=== PATIENT | female | born 1985 | race Caucasian/White ===

== ENCOUNTER 2023-06-07 21:49 | Emergency (ER) | payer OTHER, SELFPAY ==
--- NOTE | ~2023-06-07 | CT_ITS ---
CT of the Abdomen and Pelvis: Indication: Abdominal pain Technique: 2.5 mm axial scans were obtained through the abdomen and pelvis following intravenous adm inistration of 100 cc of Omnipaque 350. Dose reduction technique was used on this scan by utilizing a utomated exposure control and iterative reconstruction technique. The dose-length product (DLP) was 1 658.37 mGy-cm. Findings: Scans through the lung bases are unremarkable. There is diffuse fatty infiltration of the liver. Spleen measures 16 cm in length. Liver measures 25 cm in length. The gallbladder, adrenals and right kidney are within normal limits. 4 mm nonobstructin g left renal stone noted. Although mild inflammatory changes about the pancreatic tail, suggestive of mild acute pancreatitis. No evidence of aortic aneurysm. No lymphadenopathy. No bowel obstruction or bowel wall thickening. Normal appendix. Small fat-containing umbilical hernia noted. Images through the pelvis were performed. Urinary bladder unremarkable. IUD in place. No adnexal mass seen. No ascites. Impression: Probable mild acute pancreatitis at the pancreatic tail region. Hepatosplenomegaly with underlying diffuse fatty infiltration of the liver. 4 mm nonobstructing left renal stone. Small fat-containing umbilical hernia. IUD in place. Reviewed, dictated and finalized at [facility]. Impression: Probable mild acute pancreatitis at the pancreatic tail region. Hepatosplenomegaly with underlying diffuse fatty infiltration of the liver. 4 mm nonobstructing left renal stone. Small fat-containing umbilical hernia. IUD in place.
[2023-06-07 21:51] VITALS: BP 189/108; PULSE 113; RESP 16; TEMP 36.6; O2SAT 99
[2023-06-07 22:15] VITALS: BP 171/92; PULSE 114; RESP 16; O2SAT 97
--- NOTE | 2023-06-07 22:16 | PC.NURSE ---
pt c/c abd pain that starts on the left side and radiates to the front x1 day. pt speak broken Sinhala. pt is ax0ox4, abc are wnl nad. airway is nad. iv established and labs and urine sent. POC HCG is negative. pt took flanax ([place] Zealander aleve). pt placed on monitor.
[2023-06-07 22:18] LABS: Basophils Absolute Auto 0.1 K/mm3 (0.0-0.1); Basophils Percent Auto 0.6 % (0.2-1.2); Eosinophils Absolute Auto 0.2 K/mm3 (0-0.3); Eosinophils Percent Auto 1.4 % (0-4.4); Immature Granulocyte Percent A 0.7 % (0-0.5); Lymphocytes Absolute Auto 2.92 K/mm3 (0.9-3.2); Lymphocytes Percent Auto 20.1 % (18.3-44.2); Mean Corpuscular HGB Conc 31.4 g/dl (32-36); Mean Corpuscular Hemoglobin 23.5 pg (26-34); Mean Corpuscular Volume 74.6 fl (80-100); Mean Platelet Volume 9.9 fl (7.4-10.4); Monocytes Absolute Auto 0.7 K/mm3 (0.1-0.6); Neutrophils Absolute Auto 10.5 K/mm3 (1.3-6.7); Neutrophils Percent Auto 72.2 % (45.5-73.1); Platelet Count Result 277 k/mm3 (150-375); Red Blood Count 4.69 M/mm3 (4.2-5.4); Red Cell Distribution Width 16.9 % (11.5-14.5); White Blood Count 14.5 K/mm3 (4.5-10.0)
[2023-06-07 22:24] LABS: Appearance Urine Clear (Clear); Bacteria Urine None Seen /hpf; Bilirubin Urine Negative (Negative); Blood Urine Trace (Negative); Color Urine Yellow (Yellow); Glucose Urine UA 3+ mg/dL (Negative); Ketones Urine 1+ mg/dL (Negative); Leukocyte Esterase Ur Negative LEU/UL (Negative); Nitrate Urine Negative (Negative); Non Pathogenic Casts 0-2; Protein Urine 2+ mg/dL (Negative); RBC Urine 0-2 /hpf (0-2); Specific Grav Ur 1.025 (1.001-1.035); Squamous Epithelial Cell Urine Few /hpf (Few); pH Urine 6.5 (5.0-9.0)
--- NOTE | 2023-06-07 22:27 | ED.ABDPAIN ---
HPI - Abdominal Pain General Chief Complaint: Abdominal Pain <JUVENCIO Landaverde Last Filed: 06/08/23 02:14> Stated Complaint: left sided abdominal pain <JUVENCIO Landaverde Last Filed: 06/08/23 02:14> Time Seen by Provider: 06/07/23 21:58 <JUVENCIO Landaverde Last Filed: 06/08/23 02:14> Source: patient <JUVENCIO Landaverde Last Filed: 06/08/23 02:14> Mode of arrival: ambulatory <JUVENCIO Landaverde Filed: 06/08/23 02:14> Limitations: no limitations <JUVENCIO Landaverde Filed: 06/08/23 02:14> History of Present Illness HPI narrative: Patient is a 37-year-old female who presents to the ED with report of left-sided abdominal pain. Patient reports pain began yesterday morning and became worse today, prompting her presentation. Pain is intermittent. No significant aggravating or alleviating factors. She has never had pain like this before. She tried taking ibuprofen and a Thai pain medication without relief. Patient denies any other associated symptoms. Denies nausea, vomiting, diarrhea, constipation, dysuria, hematuria, fevers, history of ovarian cyst or kidney stones. <JUVENCIO Landaverde Last Filed: 06/08/23 02:14> Related Data Home Medications: Home Medications Medication Instructions Recorded Confirmed amlodipine 2.5 mg tablet mg 06/07/23 <JUVENCIO Landaverde Last Filed: 06/08/23 02:14> Allergies/Adverse Reactions: Allergies Allergy/AdvReac Type Severity Reaction Status Date / Time No Known Allergies Allergy Verified 06/07/23 22:21 <JUVENCIO Landaverde Last Filed: 06/08/23 02:14> Review of Systems Review of Systems: CONSTITUTIONAL: Denies fever, chills, or sweats. CARDIOVASCULAR: Denies chest pain. RESPIRATORY: Denies dyspnea. GASTROINTESTINAL: See HPI. GENITOURINARY: Denies dysuria or hematuria. SKIN: Denies rash or itching. MUSCULOSKELETAL: Denies back pain, joint pain, or myalgia. <JUVENCIO Landaverde Last Filed: 06/08/23 02:14> All systems reviewed & are unremarkable except as noted in HPI and below <JUVENCIO Landaverde Last Filed: 06/08/23 02:14> Exam Narrative: GENERAL: Well appearing, obese with BMI of 38.2, non-toxic, in no acute distress. HEAD: Normocephalic, atraumatic. NECK: Supple. No adenopathy, no masses. RESPIRATORY: Airway patent, respirations nonlabored. Clear to auscultation bilaterally, no rales, rhonchi, wheezing. CARDIOVASCULAR: Tachycardic with regular rhythm without murmurs, rubs, or gallops. Peripheral pulses 2+ and equal bilaterally. ABDOMINAL: Soft, tenderness in suprapubic region, left lower abdomen, left mid and upper abdomen, nondistended, no hepatosplenomegaly. Normoactive BS. MUSCULOSKELETAL: Moves all extremities. Strength/ROM intact without gross deformities. SKIN: Warm, dry, normal color. No rashes. NEURO: A&O X3. Speech clear. Cranial nerves II-XII grossly intact. Steady gait. No ataxic movements. PSYCHIATRIC: Appropriate mood and affect. Normal interaction. <JUVENCIO Landaverde Last Filed: 06/08/23 02:14> Course Vital Signs Vital signs: Vital Signs Temperature 36.6 C 06/07/23 21:51 Pulse Rate 113 H 06/07/23 21:51 Respiratory Rate 16 06/07/23 21:51 Blood Pressure 189/108 H 06/07/23 21:51 Pulse Oximetry 99 06/07/23 21:51 Oxygen Delivery Room Air 06/07/23 21:51 Temperature 36.9 C 06/08/23 02:01 Pulse Rate 106 H 06/08/23 04:11 Respiratory Rate 14 06/08/23 04:11 Blood Pressure 149/82 H 06/08/23 04:11 Pulse Oximetry 100 06/08/23 04:11 Oxygen Delivery Room Air 06/07/23 21:51 <JUVENCIO Landaverde Last Filed: 06/08/23 02:14> Vital Signs Temperature 36.6 C 06/07/23 21:51 Pulse Rate 113 H 06/07/23 21:51 Respiratory Rate 16 06/07/23 21:51 Blood Pressure 189/108 H 06/07/23 21:51 Pulse Oximetry 99 06/07/23 21
[2023-06-07 22:31] VITALS: BP 178/105
[2023-06-07] MEDS: ACETAMINOPHEN 500 MG TABLET 1000 MG PO (22:33)
[2023-06-07] MEDS: SODIUM CHLORIDE 0.9% IV 1,000 ML 999 ML IV CONT (22:33)
[2023-06-07 22:43] LABS: Add Urine Microscopic? YES
[2023-06-07 23:01] VITALS: BP 174/89; PULSE 120; RESP 18
[2023-06-07 23:06] LABS: Platelet Estimate Adequate (Adequate)
[2023-06-07 23:07] LABS: Anisocytosis 1+ (NORMAL); Microcytosis 1+ (NORMAL); Schistocytes None Seen (NORMAL)
--- NOTE | 2023-06-07 23:25 | PC.NURSE ---
pt is non-compliant with HTN meds
--- NOTE | 2023-06-07 23:30 | PC.NURSE ---
Addendum entered by María Queen RN 06/07/23 23:31: notified Original Note: SHAWN noitifed of b/p of sbp 176 and a HR of 120. No new orders received
[2023-06-08] VITALS (7 sets, daily range): BP systolic 149–175; BP diastolic 82–114; PULSE 106–114; RESP 14–18; TEMP 36.9–37.1; O2SAT 98–100
[2023-06-08 00:42] LABS: Estimated CRCL calculation 152 ml/min; Estimated Glomerular Filt Rate > 60
--- NOTE | 2023-06-08 01:22 | PC.NURSE ---
SHAWN Mckeon notified of pain and HTN
[2023-06-08 01:27] LABS: Albumin Level 3.6 g/dL (3.5-5.1); Anion Gap 10 mmol/L (8-16); Carbon Dioxide 19 mmol/L (22-30); Chloride 99 mmol/L (98-107); Sodium 128 mmol/L (137-145)
--- NOTE | 2023-06-08 01:29 | ECG_ITS ---
Measurements Intervals [place] Rate: 118 P: 38 IN: 144 QRS: -7 QRSD: 87 T: 32 QT: 326 QTc: 457 Interpretive Statements SINUS TACHYCARDIA POOR R-WAVE PROGRESSION NO PREVIOUS ECG AVAILABLE FOR COMPARISON Electronically Signed On 06-08-2023 10:17:10 CDT by Ruth Lunsford M.D.
[2023-06-08] MEDS: HYDROmorphone HCL INJ (*CRX) 1 MG/ML SYR IV PUSH (01:43)
[2023-06-08] MEDS: SODIUM CHLORIDE 0.9% IV 1,000 ML 999 ML IV CONT ×2 (01:43→02:20)
[2023-06-08 02:10] LABS: Alanine Aminotransferase 18 U/L (6-35); Alkaline Phosphatase 123 U/L (38-126); Aspartate Amino Transferase 19 U/L (14-36); Bilirubin,Total 0.7 mg/dL (0.2-1.3); Blood Urea Nitrogen 8 mg/dL (7-17); Calcium 8.5 mg/dL (8.4-10.2); Estimated CRCL calculation 152 ml/min; Estimated Glomerular Filt Rate > 60; Glucose 315 mg/dL (65-110); Lipase 170 U/L (23-300); Potassium 3.8 mmol/L (3.4-5.0)
--- NOTE | 2023-06-08 03:07 | PC.NURSE ---
pt denies pain. pt is waiting CT results.
== END 2023-06-08 04:51 | disposition home or self-care (01) ==
PROVIDERS: Physician Assistant; Emergency Provider Emergency Medicine
DX: K85.90 Acute pancreatitis without necrosis or infection, unspecified (principal); R10.9 Unspecified abdominal pain; K29.70 Gastritis, unspecified, without bleeding; R03.0 Elevated blood-pressure reading, without diagnosis of hypertension
CPT/HCPCS: 36415; 74177; 80053; 81001; 81025; 83690; 85025; 87086; 87088; 87147; 93005; 96361; 96374; 99284; A9270; J1170; J7030; Q9967

== ENCOUNTER 2023-12-23 14:39 | Emergency (ER) | payer OTHER, SELFPAY ==
--- NOTE | ~2023-12-23 | XR_ITS ---
EXAM: XR foot LT min 3V DATE: 12/23/2023 18:11 HISTORY: left heel pain, bruising along arch and medial, no injury . COMPARISON: None available. FINDINGS: Normal mineralization. No fracture or dislocation. No lytic or blastic lesion. Plantar and Achilles enthesopathy. No erosion or periosteal change. Plantar soft tissue swelling. IMPRESSION: No acute osseous finding in the left foot. No radiopaque foreign body. Reviewed, dictated and finalized at location [facility] IMPRESSION: No acute osseous finding in the left foot. No radiopaque foreign phuong dy.
[2023-12-23 15:20] VITALS: BP 184/102; PULSE 109; RESP 18; TEMP 36; O2SAT 100
--- NOTE | 2023-12-23 18:56 | ED.LOWEXIN ---
HPI - Extremity Injury (Lower) General Chief Complaint: Extremity Injury, Lower Stated Complaint: heel pain Time Seen by Provider: 12/23/23 17:57 History of Present Illness HPI Narrative: 38-year-old female reports for evaluation for left heel pain x1 week. Patient states a week ago, she tripped over a chair and misstepped. She did not fall to the ground. States the next day she began having pain in her left heel and over the left 5th metatarsal. She denies twisting her ankle or other injuries acquired. States her pain is worse in the mornings and after walking on it for long period of time. She has a PCP and rated [facility]. Denies concern for . Related Data Home Medications Medication Instructions Recorded Confirmed amlodipine 2.5 mg tablet mg 06/07/23 Allergies Allergy/AdvReac Type Severity Reaction Status Date / Time No Known Allergies Allergy Verified 12/23/23 15:23 Review of Systems Review of Systems: CONSTITUTIONAL: Denies fever, chills, or sweats. EYES: Denies visual changes, redness, or discharge. ENT: Denies rhinorrhea, congestion, sore throat, or otalgia. CARDIOVASCULAR: Denies chest pain, palpitations, or edema. RESPIRATORY: Denies cough or dyspnea. GASTROINTESTINAL: Denies abdominal pain, nausea, vomiting, or diarrhea. GENITOURINARY: Denies dysuria or hematuria. SKIN: Denies rash or itching. MUSCULOSKELETAL: See HPI NEUROLOGIC: Denies headache, numbness, or weakness. PSYCHIATRIC: Denies anxiety or depression. Exam Narrative: GENERAL: Well-appearing, well-nourished, and in no acute distress. HEAD: Normocephalic, atraumatic. NECK: Supple. CHEST: Clear to auscultation. No respiratory distress. HEART: Regular rate and rhythm. No murmur heard. Normal peripheral pulses. EXTREMITIES: LLE: Tenderness to the calcaneus and over the proximal aspect of the 5th metatarsal without overlying skin changes, ecchymosis or edema. No tenderness remainder of foot, ankle, tib-fib rule lower extremity. Full range of motion of hip, knee, ankle and toes. Cap refill less than 2. DP pulse 2 +. Sensation intact. SKIN: Warm, dry, no rash. NEURO: No focal deficits. Alert and oriented x3 Course Vital Signs Vital signs: Vital Signs Temperature 96.8 F L 12/23/23 15:20 Pulse Rate 109 H 12/23/23 15:20 Respiratory Rate 18 12/23/23 15:20 Blood Pressure 184/102 H 12/23/23 15:20 Pulse Oximetry 100 12/23/23 15:20 Oxygen Delivery Room Air 12/23/23 15:20 Temperature 96.8 F L 12/23/23 15:20 Pulse Rate 94 12/23/23 19:03 Respiratory Rate 18 12/23/23 19:03 Blood Pressure 167/91 H 12/23/23 19:03 Pulse Oximetry 99 12/23/23 19:03 Oxygen Delivery Room Air 12/23/23 15:20 MDM - Extremity Injury (Lower) MDM Narrative Medical decision making narrative: 38-year-old female reports for evaluation for left heel pain x1 week. See HPI for further history. Triage vital significant for elevated blood pressure and mild tachycardia, otherwise unremarkable. Exam is significant for the above. X-ray of the foot is unremarkable. Imaging and exam discussed with the patient. Suspect foot sprain versus plantar fasciitis. Ibuprofen provided. Patient requesting postop shoe and Lionel wrap which was also provided. Ibuprofen sent to pharmacy. Encouraged close follow-up with PCP, supportive measures discussed. ED return precautions discussed. Patient agreeable to plan verbalized understanding. Vitals improved. Discharged in stable condition. Discharge Plan Discharge Clinical Impression: Foot sprain Qualifiers: Encounter type: initial encounter Laterality: left Qualified Code(s): S93.602A - Unspecified sprain of left foot, initial encounter Patient Disposition: Home, Self-Care Condition: Stable Instructions: Antibiotic Form, Plantar Fasciitis (ED), Foot Sprain (ED), Plantar Fasciitis Exercises (ED) Patient Language: Cambodian Prescriptions: New ibuprofen 600 mg tablet 600
[2023-12-23] MEDS: IBUPROFEN 400 MG TABLET 800 MG PO (19:00)
[2023-12-23 19:03] VITALS: BP 167/91; PULSE 94; RESP 18; O2SAT 99
== END 2023-12-23 19:06 | disposition home or self-care (01) ==
PROVIDERS: Emergency Provider Physician Assistant
DX: S93.602A Unspecified sprain of left foot, initial encounter (principal); W22.03XA Walked into furniture, initial encounter
CPT/HCPCS: 73630; 99283; A9270

== ENCOUNTER 2024-04-24 13:13 | Inpatient (IN) | payer OTHER, SELFPAY ==
--- NOTE | ~2024-04-24 | CT_ITS ---
CT abdomen pelvis w con Ordering provider: Elie Lopez MD History: . epigastric pain . Comparison: June 08 2023 Technique: CT abdomen with IV and without oral contrast. Radiation reduction technique utilized. DLP is 1443.15 mGy. Findings: VISUALIZED LOWER CHEST: Dependent atelectatic changes. UPPER ABDOMINAL ORGANS: Liver: Fat infiltration. Measures 29 cm. Hepatomegaly. Gallbladder: Normal. Spleen: Splenomegaly. Measures 16 cm. Stomach/duodenum: Normal. Pancreas: Fat stranding around the body and tail of the pancreas is noted suggestive of pancreatitis. Adrenals: Normal. Kidneys: Lobulated outline of both kidneys suggestive of lobation. 4 mm stone in the left kidne y lower pole. Small cyst in the right kidney lower pole. Urinary bladder: Normal. Uterus: Normal. IUD is seen in the uterus. VISUALIZED BOWEL AND MESENTERY: Normal appendix. The bowel is otherwise normal. No free air or free f luid. No mesenteric lymphadenopathy. RETROPERITONEUM: Normal abdominal aorta. No retroperitoneal lymphadenopathy. Small para-aortic lymph nodes. MUSCULOSKELETAL: Fat containing umbilical hernia. Otherwise, The superficial soft tissues are normal. Age appropriate degenerative changes of the spine. Bilateral sacroiliacs. IMPRESSION: Pancreatitis of the body and tail of the pancreas Hepatomegaly with fat infiltration. Splenomegaly. Stone in the left kidney. Lobulated outline of both kidneys. Small cyst in the right kidney. Small fat-containing umbilical hernia. Reviewed, dictated and finalized at location A.
[2024-04-24 13:32] VITALS: BP 163/86; PULSE 105; RESP 20; TEMP 36.5; O2SAT 98
[2024-04-24 14:50] LABS: Basophils Absolute Auto 0.1 K/mm3 (0.0-0.1); Basophils Percent Auto 0.6 % (0.2-1.2); Eosinophils Absolute Auto 0.2 K/mm3 (0-0.3); Eosinophils Percent Auto 1.5 % (0-4.4); Hematocrit 36.4 % (37.0-47.0); Hemoglobin 12.9 g/dL (12.0-15.0); Immature Granulocyte Absolute 0.09 K/mm3 (0.00-0.031); Immature Granulocyte Percent A 0.7 % (0-0.5); Lymphocytes Absolute Auto 1.43 K/mm3 (0.9-3.2); Mean Corpuscular HGB Conc 35.4 g/dl (32-36); Mean Corpuscular Hemoglobin 27.6 pg (26-34); Mean Corpuscular Volume 77.9 fl (80-100); Mean Platelet Volume 10.5 fl (7.4-10.4); Monocytes Absolute Auto 0.7 K/mm3 (0.1-0.6); Monocytes Percent Auto 5.3 % (2.6-8.5); Neutrophils Absolute Auto 10.5 K/mm3 (1.3-6.7); Neutrophils Percent Auto 80.9 % (45.5-73.1); Platelet Count Result 338 k/mm3 (150-375); Red Blood Count 4.67 M/mm3 (4.2-5.4); Red Cell Distribution Width 15.6 % (11.5-14.5)
[2024-04-24] MEDS: SODIUM CHLORIDE 0.9% IV 1,000 ML 999 ML IV CONT (15:00)
[2024-04-24] MEDS: MORPHINE SULFATE (*CRX) 4 MG/ML INJ IV PUSH ×3 (15:00→18:42)
[2024-04-24] MEDS: ONDANSETRON INJ 4 MG/2 ML VIAL IV PUSH ×3 (15:00→22:39)
[2024-04-24 15:09] LABS: Appearance Urine Cloudy (Clear); Bacteria Urine 4+ /hpf; Bilirubin Urine Negative (Negative); Blood Urine 1+ (Negative); Color Urine Yellow (Yellow); Glucose Urine UA 3+ mg/dL (Negative); Ketones Urine 2+ mg/dL (Negative); Leukocyte Esterase Ur Negative LEU/UL (Negative); Need Manual Microscopic Reviewed; Nitrate Urine Negative (Negative); Non Pathogenic Casts 0-2; Protein Urine 2+ mg/dL (Negative); RBC Urine 0-2 /hpf (0-2); Squamous Epithelial Cell Urine Moderate /hpf (Few); Urobilinogen Urine 0.2 mg/dL (<2.0); WBC Urine 21-50 /hpf (0-3); pH Urine 5.5 (5.0-9.0)
[2024-04-24 15:10] LABS: Add Urine Microscopic? YES; Specific Grav Ur 1.047 (1.001-1.035)
[2024-04-24 15:21] LABS: Alanine Aminotransferase 14 U/L (6-35); Albumin Level 4.3 g/dL (3.5-5.1); Alkaline Phosphatase 101 U/L (38-126); Aspartate Amino Transferase 21 U/L (14-36); Blood Urea Nitrogen 10 mg/dL (7-17); Calcium 9.3 mg/dL (8.4-10.2); Chloride 101 mmol/L (98-107); Estimated CRCL calculation 129 ml/min; Estimated Glomerular Filt Rate > 60; Glucose 283 mg/dL (65-110); Lipase 757 U/L (23-300); Potassium 4.1 mmol/L (3.4-5.0); Sodium 134 mmol/L (137-145)
--- NOTE | 2024-04-24 16:38 | ED.ABDPAIN ---
HPI - Abdominal Pain General Chief Complaint: Abdominal Pain Stated Complaint: LUQ pain Time Seen by Provider: 04/24/24 14:22 History of Present Illness HPI narrative: Patient is a 38-year-old female who presents ER with epigastric pain. Ongoing for 2 days. Aching in fullness. Radiates towards back. No nausea or vomiting. Worse with eating and drinking. Feels similar to previous pancreatitis. Denies any alcohol use. Related Data Home Medications Medication Instructions Recorded Confirmed amlodipine 2.5 mg tablet mg 06/07/23 Allergies Allergy/AdvReac Type Severity Reaction Status Date / Time No Known Allergies Allergy Verified 04/24/24 13:13 Review of Systems Review of Systems: All systems reviewed & are unremarkable except as noted in HPI and below Constitutional: Constitutional: Reports no additional constitutional complaints ENT: Reports system reviewed and no additional complaints, except as documented Cardiovascular: Cardiovascular: Reports no additional cardiovascular complaints Respiratory: Respiratory: Reports no additional respiratory complaints Gastrointestinal: Gastrointestinal: Reports abdominal pain, Reports bloating, Denies diarrhea, Denies nausea and Denies vomiting Genitourinary: Genitourinary: Reports no additional female genitourinary complaints [facility] Past Medical History Medical History (Updated 04/24/24 @ 18:22 by Joelle Davison APRN) Diabetes Hypertension Pancreatitis Surgical History Surgical History No history of previous surgery Exam Narrative: GENERAL: Well-appearing, obese, and in no acute distress. HEAD: Normocephalic, atraumatic. ENT: Mucous membranes moist. NECK: Supple. CHEST: Clear to auscultation. No respiratory distress. HEART: Regular rate and rhythm. Normal peripheral pulses. ABDOMEN: Soft, tender palpation to the epigastrium and bilateral upper quadrants with guarding, nondistended. EXTREMITIES: Normal range of motion. No edema. SKIN: Warm, dry, no rash. NEURO: Alert and oriented x3. PSYCH: Normal mood and affect. Course Course Emergency Course: Admit to the hospitalist service for pain control. Patient NPO with IV fluids going. Vital Signs Vital signs: Vital Signs Temperature 97.7 F 04/24/24 13:32 Pulse Rate 105 H 04/24/24 13:32 Respiratory Rate 20 04/24/24 13:32 Blood Pressure 163/86 H 04/24/24 13:32 Pulse Oximetry 98 04/24/24 13:32 Oxygen Delivery Room Air 04/24/24 13:32 Temperature 97.7 F 04/24/24 13:32 Pulse Rate 70 04/24/24 18:15 Respiratory Rate 16 04/24/24 18:15 Blood Pressure 147/82 H 04/24/24 18:15 Pulse Oximetry 98 04/24/24 18:15 Oxygen Delivery Room Air 04/24/24 13:32 MDM - Abdominal Pain Lab Data 04/24/24 14:39 04/24/24 14:39 Labs: Lab Results 04/24/24 Range/Units 14:39 WBC 13.0 H (4.5-10.0) K/mm3 RBC 4.67 (4.2-5.4) M/mm3 Hgb 12.9 (12.0-15.0) g/dL Hct 36.4 L (37.0-47.0) % MCV 77.9 L (80-100) fl MCH 27.6 (26-34) pg MCHC 35.4 (32-36) g/dl RDW 15.6 H (11.5-14.5) % Plt Count 338 (150-375) k/mm3 MPV 10.5 H (7.4-10.4) fl Immature Gran % (Auto) 0.7 H (0-0.5) % Neut % (Auto) 80.9 H (45.5-73.1) % Lymph % (Auto) 11.0 L (18.3-44.2) % [place] % (Auto) 5.3 (2.6-8.5) % Eos % (Auto) 1.5 (0-4.4) % Baso % (Auto) 0.6 (0.2-1.2) % Lymph # (Auto) 1.43 (0.9-3.2) K/mm3 [place] # (Auto) 0.7 H (0.1-0.6) K/mm3 Eos # (Auto) 0.2 (0-0.3) K/mm3 Baso # (Auto) 0.1 (0.0-0.1) K/mm3 Abs Immat Gran (auto) 0.09 H (0.00-0.031) K/mm3 Absolute Neuts (auto) 10.5 H (1.3-6.7) K/mm3 Absolute Nucleated RBC 0.000 (0.0-0.012) K/mm3 Nucleated RBC % 0.0 (0.0-0.2) % Sodium 134 L (137-145) mmol/L Potassium 4.1 (3.4-5.0) mmol/L Chloride 101 (98-107) mmol/L Carbon Dioxide TNP Anion Gap Not Reportable BUN 10 (7-17) mg/dL Creatini
--- NOTE | 2024-04-24 18:09 | PM.IMHP ---
H&P: [facility] History of Present Illness Date/Time: 04/24/24 18:09 Chief Complaint: Abdominal Pain Narrative: 38 y/o F presents here with abdominal pain with PMH of pancreatitis, DM, and HTN. The patient presents here from home for further evaluation of epigastric pain. The pain began approximately 2 days ago. She describes the pain as an aching/fullness, radiating into her mid back, intermittent, aggravated by eating, and alleviated by water. Also experiencing nausea and vomiting. No associated fever, diarrhea, urinary symptoms, or changes in stool color. Has been taking ibuprofen for pain without relief. Denies ETOH use. Reports compliance with DM medications and HTN medications at this time. Initial VS at presentation: 97.7F, HR 105, RR 20, 163/86, and 98% on RA. ED workup showed: WBC 13, no anemia, sodium 134, creatinine 0.6 and GFR >60, glucose 283, and lipase 757. UA equivocal for UTI. CT abd/pelvis pancreatitis, hepatomegaly, splenomegaly, stone in the left ureter, small cyst in the right kidney, and small fat containing umbilical hernia. Review of Systems Review of Systems: All systems reviewed & are unremarkable except as noted in HPI and below [facility] Past Medical History Medical History (Updated 04/25/24 @ 00:00 by Joelle Davison APRN) Diabetes Hypertension Pancreatitis Surgical History Surgical History No history of previous surgery Social History Social History Smoking status: Never smoker Alcohol intake: never Substance use: never Substance use type: does not use Do You Feel Safe in your Home?: Yes Lack of Transportation: YES Lack of Food: Never True Current Housing: I Have Housing Concerned About Future Housing: No Difficulty Paying Gas/Electric Bills: No Difficulty Paying for Meds: No Currently Unemployed: No Education: High School Diploma/GED Difficulty w/ Childcare or Family Care: No Spiritual care concerns: No Meds Home Medications and Allergies Home Medications Medication Instructions Recorded Confirmed Type amlodipine 2.5 mg tablet 5 mg PO DAILY 06/07/23 04/24/24 History hydrocodone 5 mg-acetaminophen 325 1 tablet PO Q6H PRN pain 3 days 06/08/23 04/24/24 Rx mg tablet #12 tabs pantoprazole 40 mg tablet,delayed 40 mg PO HS 4 weeks #28 tabs 06/08/23 04/24/24 Rx release (Protonix) ibuprofen 600 mg tablet 600 mg PO Q6H PRN pain #14 tabs 12/23/23 04/24/24 Rx dulaglutide 0.75 mg/0.5 mL 0.75 mg subcut WEEKLY 04/24/24 04/24/24 History subcutaneous pen injector (Trulicity) ergocalciferol (vitamin D2) 1,250 50,000 unit PO WEEKLY 04/24/24 04/24/24 History mcg (50,000 unit) capsule fenofibrate 160 mg tablet 160 mg PO DAILY 04/24/24 04/24/24 History losartan 100 mg tablet 100 mg PO DAILY 04/24/24 04/24/24 History metformin 1,000 mg tablet 1,000 mg PO BID 04/24/24 04/24/24 History Allergies Allergy/AdvReac Type Severity Reaction Status Date / Time No Known Allergies Allergy Verified 04/24/24 13:13 Vital Signs Vital Signs - 24 hr 04/24/24 13:32 Temperature 97.7 F Pulse Rate 105 H Respiratory Rate 20 Blood Pressure 163/86 H Pulse Oximetry 98 Oxygen Delivery Room Air Exam Const: General: comfortable and no acute distress Other: , female, ill-appearing HENMT: Face/Nose/Sinus: Normal nares present Mouth: Yes moist mucous membranes Eyes: General: appearance normal, both eyes and all related structures Sclera: sclerae normal Pupils: Equal, round and reactive pupils present EOM: EOMs intact bilaterally Resp: Effort & Inspection: normal respiratory effort Auscultation: clear to auscultation bilaterally Cardio: Rate: tachycardic (Rate 100) Rhythm: regular rhythm Other: S1-S2 present without murmur, rub, ectopy GI: Other: Abdomen soft, nondistended. Significant tenderness to the left upp
[2024-04-24 18:15] VITALS: BP 147/82; PULSE 70; RESP 16; O2SAT 98
--- NOTE | 2024-04-24 18:33 | ADMGEN ---
This patient, Nalini Don, was admitted to 3 Medical Room 340-01. Patient/family oriented to hospital policies and general routines including ID bracelet, bed and alarms, visiting hours, pain management, procedures, bathroom and other care routines, personal items, smoking policy, room service/diet, and visiting hours. Information on how to activate the Rapid Response Team has been discussed. Patient/Family are encouraged to report perceived risks to care and to ask questions if they do not understand what they are told or what they should do.
[2024-04-24] MEDS: SODIUM CHLORIDE 0.9% IV 1,000 ML 175 ML IV CONT (18:41)
[2024-04-24] MEDS: HYDROmorphone HCL INJ (*CRX) 1 MG/ML SYR 0.5 MG IV PUSH ×2 (20:00→22:41)
[2024-04-24 20:27] VITALS: BP 133/77; PULSE 105; RESP 18; TEMP 36.4; O2SAT 94
[2024-04-24 20:34] LABS: Glucose Point of Care 295 mg/dl (65-105)
[2024-04-24 21:35] VITALS: O2SAT 94
[2024-04-25] MEDS: SODIUM CHLORIDE 0.9% IV 1,000 ML 100 ML IV CONT ×3 (00:20→17:24)
[2024-04-25] MEDS: HYDROcodone/acetaminophen (*CRX) 5-325 MG TABLET 1 TAB PO (00:20)
[2024-04-25] MEDS: KETOROLAC 30 MG/ML VIAL (*BKC) IV PUSH (00:21)
[2024-04-25 04:24] VITALS: BP 132/71; PULSE 108; RESP 16; TEMP 36.6; O2SAT 97
[2024-04-25] MEDS: HYDROmorphone HCL INJ (*CRX) 1 MG/ML SYR 0.75 MG IV PUSH ×4 (04:38→20:06)
[2024-04-25] MEDS: ONDANSETRON INJ 4 MG/2 ML VIAL IV PUSH ×3 (04:42→20:06)
[2024-04-25 05:50] LABS: Basophils Percent Auto 0.4 % (0.2-1.2); Eosinophils Percent Auto 0.1 % (0-4.4); Hematocrit 35.2 % (37.0-47.0); Hemoglobin 11.2 g/dL (12.0-15.0); Immature Granulocyte Absolute 0.08 K/mm3 (0.00-0.031); Immature Granulocyte Percent A 0.8 % (0-0.5); Lymphocytes Percent Auto 7.8 % (18.3-44.2); Mean Corpuscular HGB Conc 31.8 g/dl (32-36); Mean Corpuscular Hemoglobin 25.2 pg (26-34); Mean Corpuscular Volume 79.1 fl (80-100); Mean Platelet Volume 10.4 fl (7.4-10.4); Monocytes Absolute Auto 0.6 K/mm3 (0.1-0.6); Neutrophils Absolute Auto 8.8 K/mm3 (1.3-6.7); Neutrophils Percent Auto 84.9 % (45.5-73.1); Platelet Count Result 290 k/mm3 (150-375); Red Blood Count 4.45 M/mm3 (4.2-5.4); Red Cell Distribution Width 15.6 % (11.5-14.5); White Blood Count 10.3 K/mm3 (4.5-10.0)
[2024-04-25 06:26] LABS: Alanine Aminotransferase 10 U/L (6-35); Albumin Level 3.5 g/dL (3.5-5.1); Alkaline Phosphatase 75 U/L (38-126); Anion Gap 15 mmol/L (4-12); Aspartate Amino Transferase 16 U/L (14-36); Bilirubin,Total 0.6 mg/dL (0.2-1.3); Blood Urea Nitrogen 8 mg/dL (7-17); Calcium 7.8 mg/dL (8.4-10.2); Carbon Dioxide 14 mmol/L (22-30); Chloride 108 mmol/L (98-107); Cholesterol 294 mg/dL (0-200); Estimated CRCL calculation 112 ml/min; Estimated Glomerular Filt Rate > 60; Glucose 359 mg/dL (65-110); Potassium 4.7 mmol/L (3.4-5.0); Sodium 137 mmol/L (137-145)
[2024-04-25 06:55] LABS: Triglycerides 1898 mg/dL (<150)
[2024-04-25 06:56] LABS: Lipase 5776 U/L (23-300)
[2024-04-25 07:21] LABS: LDL Cholesterol Direct < 60 mg/dL
[2024-04-25 08:07] LABS: Glucose Point of Care 319 mg/dl (65-105)
[2024-04-25] MEDS: amLODIPine BESYLATE 5 MG TABLET PO (08:13)
[2024-04-25] MEDS: LOSARTAN POTASSIUM 100 MG TABLET PO (08:13)
[2024-04-25] MEDS: FENOFIBRATE 160 MG TABLET PO (08:13)
[2024-04-25] MEDS: INSULIN ASPART (*BKC) 100 UNITS/ML SUB-Q ×3 (08:14→17:27)
[2024-04-25 12:34] LABS: Glucose Point of Care 277 mg/dl (65-105)
[2024-04-25] MEDS: ACETAMINOPHEN 325 MG TABLET 650 MG PO (12:58)
[2024-04-25 14:00] VITALS: BP 157/80; PULSE 118; RESP 16; TEMP 36.9; O2SAT 92
--- NOTE | 2024-04-25 14:33 | PM.IMPN ---
Progress Note: A&P Assessment and Plan (1) Pancreatitis: Qualifiers: Acute pancreatitis complication: no infection or necrosis Chronicity: acute Pancreatitis type: unspecified pancreatitis type Qualified Code(s): K85.90 - Acute pancreatitis without necrosis or infection, unspecified Code(s): K85.90 - Acute pancreatitis without necrosis or infection, unspecified Status: Acute Assessment and Plan: - IV fluids: 1L bolus -> 175 mL/hr - trend lipase:757, 5776 - lipid panel with elevated triglycerides of 1898 and A1C 11.0 - pain control with Tylenol, [place], Morphine - zofran prn for nausea - CT abd/pelvis: Pancreatitis of the body and tail of the pancreas, hepatomegaly with fat infiltration, splenomegaly, stone in the left kidney. Lobulated outline of both kidneys. Small cyst in the right kidney, small fat-containing umbilical hernia. - ETOH: none - NPO until pain is more controlled, then will advance (2) Diabetes: Code(s): E11.9 - Type 2 diabetes mellitus without complications Status: Acute Assessment and Plan: - hypoglycemia protocol - POC blood glucose ACHS - home medication: Metformin and Trulicity held - correct regimen ordered - low dose TIDWM and HS - A1C 11% on 04/25/2024 (3) Hypertension: Code(s): I10 - Essential (primary) hypertension Status: Acute Assessment and Plan: - continue home medications: Amlodipine 5 mg daily and losartan 100 mg daily - monitor Plan Diet: NPO with ice chips GI Prophylaxis: not currently indicated DVT Prophylaxis: SCDs Lines: peripheral Code Status: full code Subjective Date/time seen: 04/25/24 14:33 Interval history: Patient continues to have acute abdominal pain worse on the left than the right. She did states that she did have nausea and emesis when given IV pain medication. She denies diarrhea, fever, chest pain shortness a breath. Exam Narrative: GENERAL: Comfortable, no acute distress, central obesity HENMT: dry mucous membranes EYES: EOM intact b/l RESPIRATORY: clear to auscultation, no increased respiratory effort CARDIO: Regular rate and rhythm GI: soft, left upper quadrant tenderness, bowel sounds present SKIN/EXTREMITIES: no rashes, no edema, no redness or tenderness NEURO: PROM intact, answers questions appropriately, A&O x4 Objective Data Vital Signs Vital Signs: Vital Signs - 24 hr 04/24/24 18:15 04/24/24 20:27 04/24/24 20:00 Temperature 97.6 F Pulse Rate 70 105 H Respiratory Rate 16 18 Blood Pressure 147/82 H 133/77 Pulse Oximetry 98 94 Oxygen Delivery Room Air 04/24/24 21:35 04/25/24 04:24 04/25/24 08:00 Temperature 97.8 F Pulse Rate 108 H Respiratory Rate 16 Blood Pressure 132/71 Pulse Oximetry 94 97 Oxygen Delivery Room Air Room Air Intake/Output Intake/Output: Intake & Output 04/22/24 04/23/24 04/24/24 04/25/24 23:59 23:59 23:59 23:59 Intake Total 1000 1796.7 Balance 1000 1796.7 Meds/Results Medications: Active Medications Generic Name Dose Route Start Last Admin Trade Name Freq PRN Reason Stop Dose Admin Acetaminophen 650 mg 04/24/24 18:50 04/25/24 12:58 Acetaminophen 325 Mg Tablet PO 650 mg Q4H PRN Administration Mild Pain (1-3) or Fever Hydrocodone Bitart/Acetaminophen 1 tab 04/24/24 18:50 04/25/24 00:20 Hydrocodone/Acetaminophen (*Crx) 5-325 Mg Tablet PO 1 tab Q4H PRN Administration Pain Rated 4-6 Amlodipine Besylate 5 mg 04/25/24 09:00 04/25/24 08:13 Amlodipine Besylate 5 Mg Tablet PO 5 mg DAILY GUERO Administration Dextrose 12.5 gm 04/24/24 18:53 Dextrose 50% 25 Gm/50 Ml Syringe IV PUSH PRN PRN Hypoglycemia Protocol Ergocalciferol 50,000 units 04/27/24 09:00 Ergocalciferol 50,000 Units Capsule PO WEEKLY GUERO Fenofibrate 160 mg 04/25/24 09:00 04/25/24 08:13 Fenofibrate 160 Mg Tablet PO 160 mg DAILY GUERO Admin
[2024-04-25 17:26] LABS: Glucose Point of Care 280 mg/dl (65-105)
[2024-04-25 19:56] VITALS: BP 125/73; PULSE 115; RESP 18; TEMP 37.3; O2SAT 94
[2024-04-25] MEDS: PANTOPRAZOLE 40 MG TABLET PO (20:06)
[2024-04-25 22:29] LABS: Glucose Point of Care 266 mg/dl (65-105)
[2024-04-26] MEDS: ONDANSETRON INJ 4 MG/2 ML VIAL IV PUSH (01:35)
[2024-04-26] MEDS: HYDROmorphone HCL INJ (*CRX) 1 MG/ML SYR 0.75 MG IV PUSH (01:35)
[2024-04-26] MEDS: SODIUM CHLORIDE 0.9% IV 1,000 ML 100 ML IV CONT ×2 (03:10→12:57)
[2024-04-26 04:44] VITALS: BP 145/71; PULSE 108; RESP 18; TEMP 36.1; O2SAT 94
[2024-04-26 06:32] LABS: Hematocrit 34.1 % (37.0-47.0); Hemoglobin 10.4 g/dL (12.0-15.0); Mean Corpuscular HGB Conc 30.5 g/dl (32-36); Mean Corpuscular Hemoglobin 24.8 pg (26-34); Mean Corpuscular Volume 81.2 fl (80-100); Mean Platelet Volume 10.2 fl (7.4-10.4); Platelet Count Result 272 k/mm3 (150-375); Red Cell Distribution Width 16.6 % (11.5-14.5); White Blood Count 9.5 K/mm3 (4.5-10.0)
[2024-04-26 06:44] LABS: Anion Gap 9 mmol/L (4-12); Blood Urea Nitrogen 13 mg/dL (7-17); Calcium 7.7 mg/dL (8.4-10.2); Carbon Dioxide 22 mmol/L (22-30); Chloride 109 mmol/L (98-107); Estimated CRCL calculation 112 ml/min; Estimated Glomerular Filt Rate > 60; Glucose 264 mg/dL (65-110); Lipase 634 U/L (23-300); Potassium 4.3 mmol/L (3.4-5.0); Sodium 140 mmol/L (137-145)
[2024-04-26 08:21] LABS: Glucose Point of Care 266 mg/dl (65-105)
[2024-04-26] MEDS: HYDROcodone/acetaminophen (*CRX) 5-325 MG TABLET 1 TAB PO ×3 (09:10→21:53)
[2024-04-26] MEDS: LOSARTAN POTASSIUM 100 MG TABLET PO (09:11)
[2024-04-26] MEDS: FENOFIBRATE 160 MG TABLET PO (09:11)
[2024-04-26] MEDS: amLODIPine BESYLATE 5 MG TABLET PO (09:11)
[2024-04-26] MEDS: INSULIN ASPART (*BKC) 100 UNITS/ML SUB-Q ×3 (09:13→17:27)
[2024-04-26 12:08] LABS: Glucose Point of Care 228 mg/dl (65-105)
--- NOTE | 2024-04-26 13:59 | PM.IMPN ---
Progress Note: A&P Assessment and Plan (1) Pancreatitis: Qualifiers: Chronicity: acute Pancreatitis type: unspecified pancreatitis type Acute pancreatitis complication: no infection or necrosis Qualified Code(s): K85.90 - Acute pancreatitis without necrosis or infection, unspecified Code(s): K85.90 - Acute pancreatitis without necrosis or infection, unspecified Status: Acute Assessment and Plan: - IV fluids @ 100 mL/hr - trend lipase:757, 5776, 634 - lipid panel with elevated triglycerides of 1898 and A1C 11.0 - pain control with Tylenol, [place], Morphine - zofran prn for nausea - CT abd/pelvis: Pancreatitis of the body and tail of the pancreas, hepatomegaly with fat infiltration, splenomegaly, stone in the left kidney. Lobulated outline of both kidneys. Small cyst in the right kidney, small fat-containing umbilical hernia. - ETOH: none - Diet advanced to clear liquids. (2) Diabetes: Code(s): E11.9 - Type 2 diabetes mellitus without complications Status: Acute Assessment and Plan: - hypoglycemia protocol - POC blood glucose ACHS - home medication: Metformin and Trulicity held - correct regimen ordered - low dose TIDWM and HS - A1C 11% on 04/25/2024 (3) Hypertension: Code(s): I10 - Essential (primary) hypertension Status: Acute Assessment and Plan: - continue home medications: Amlodipine 5 mg daily and losartan 100 mg daily - monitor Plan Diet: clear liquids GI Prophylaxis: not currently indicated DVT Prophylaxis: SCDs Lines: peripheral Code Status: full code Subjective Date/time seen: 04/26/24 13:59 Interval history: Patient's abdominal pain is improving. She is beginning to have an appetite again. Will start her on a clear liquid diet. She denies any nausea vomiting. Plan to advance diet. Exam Narrative: GENERAL: Comfortable, no acute distress, central obesity HENMT: dry mucous membranes EYES: EOM intact b/l RESPIRATORY: clear to auscultation, no increased respiratory effort CARDIO: Regular rate and rhythm GI: soft, left upper quadrant tenderness (improved) , bowel sounds present SKIN/EXTREMITIES: no rashes, no edema, no redness or tenderness NEURO: PROM intact, answers questions appropriately, A&O x4 Objective Data Vital Signs Vital Signs: Vital Signs - 24 hr 04/25/24 14:00 04/25/24 19:56 04/25/24 20:00 Temperature 98.5 F 99.1 F Pulse Rate 118 H 115 H Respiratory Rate 16 18 Blood Pressure 157/80 H 125/73 Pulse Oximetry 92 94 Oxygen Delivery Room Air 04/26/24 04:44 04/26/24 08:00 Temperature 97 F L Pulse Rate 108 H Respiratory Rate 18 Blood Pressure 145/71 H Pulse Oximetry 94 Oxygen Delivery Room Air Intake/Output Intake/Output: Intake & Output 04/23/24 04/24/24 04/25/24 04/26/24 23:59 23:59 23:59 23:59 Intake Total 1000 2706.7 1950.0 Balance 1000 2706.7 1950.0 Meds/Results Medications: Active Medications Generic Name Dose Route Start Last Admin Trade Name Freq PRN Reason Stop Dose Admin Acetaminophen 650 mg 04/24/24 18:50 04/25/24 12:58 Acetaminophen 325 Mg Tablet PO 650 mg Q4H PRN Administration Mild Pain (1-3) or Fever Hydrocodone Bitart/Acetaminophen 1 tab 04/24/24 18:50 04/26/24 09:10 Hydrocodone/Acetaminophen (*Crx) 5-325 Mg Tablet PO 1 tab Q4H PRN Administration Pain Rated 4-6 Amlodipine Besylate 5 mg 04/25/24 09:00 04/26/24 09:11 Amlodipine Besylate 5 Mg Tablet PO 5 mg DAILY GUERO Administration Dextrose 12.5 gm 04/24/24 18:53 Dextrose 50% 25 Gm/50 Ml Syringe IV PUSH PRN PRN Hypoglycemia Protocol Ergocalciferol 50,000 units 04/27/24 09:00 Ergocalciferol 50,000 Units Capsule PO WEEKLY GUERO Fenofibrate 160 mg 04/25/24 09:00 04/26/24 09:11 Fenofibrate 160 Mg Tablet PO 160 mg DAILY GUERO Administration Glucagon 1 mg 04/24/24 18:53 Glucagon For Inj 1 Mg Vial
[2024-04-26 14:30] VITALS: BP 130/64; PULSE 110; RESP 18; TEMP 36.3; O2SAT 96
[2024-04-26 17:00] LABS: Glucose Point of Care 204 mg/dl (65-105)
[2024-04-26] MEDS: PANTOPRAZOLE 40 MG TABLET PO (21:38)
[2024-04-26 22:00] VITALS: BP 147/80; PULSE 113; RESP 18; TEMP 36.3; O2SAT 96
[2024-04-26 23:24] LABS: Glucose Point of Care 283 mg/dl (65-105)
[2024-04-27] MEDS: SODIUM CHLORIDE 0.9% IV 1,000 ML 100 ML IV CONT ×3 (03:24→20:10)
[2024-04-27 04:55] LABS: Hemoglobin 9.6 g/dL (12.0-15.0); Mean Corpuscular Hemoglobin 24.8 pg (26-34); Mean Corpuscular Volume 82.7 fl (80-100); Platelet Count Result 269 k/mm3 (150-375); Red Blood Count 3.87 M/mm3 (4.2-5.4); Red Cell Distribution Width 16.4 % (11.5-14.5); White Blood Count 9.5 K/mm3 (4.5-10.0)
[2024-04-27 05:07] LABS: Anion Gap 6 mmol/L (4-12); Blood Urea Nitrogen 9 mg/dL (7-17); Calcium 8.2 mg/dL (8.4-10.2); Carbon Dioxide 24 mmol/L (22-30); Chloride 111 mmol/L (98-107); Estimated CRCL calculation 129 ml/min; Estimated Glomerular Filt Rate > 60; Glucose 243 mg/dL (65-110); Sodium 141 mmol/L (137-145)
[2024-04-27 06:00] VITALS: BP 151/92; PULSE 102; RESP 16; TEMP 36.2; O2SAT 95
[2024-04-27 08:22] LABS: Glucose Point of Care 225 mg/dl (65-105)
--- NOTE | 2024-04-27 08:44 | ECG_ITS ---
Test Date: 2024-04-27 09:16:37 Measurements Intervals [place] Rate: 106 P: 26 MO: 128 QRS: -4 QRSD: 95 T: 12 QT: 327 QTc: 435 Interpretive Statements SINUS TACHYCARDIA POOR R-WAVE PROGRESSION CONSIDER PREVIOUS INFERIOR INFARCTION ABNORMAL ECG No previous ECG available for comparison Electronically Signed On 04-28-2024 08:23:13 CDT by Dariel Pack M.D.
[2024-04-27] MEDS: LOSARTAN POTASSIUM 100 MG TABLET PO (08:57)
[2024-04-27] MEDS: amLODIPine BESYLATE 5 MG TABLET PO (08:57)
[2024-04-27] MEDS: ERGOCALCIFEROL 50,000 UNITS CAPSULE 50000 UNITS PO (08:57)
[2024-04-27] MEDS: FENOFIBRATE 160 MG TABLET PO (08:57)
[2024-04-27] MEDS: INSULIN ASPART (*BKC) 100 UNITS/ML SUB-Q ×3 (08:58→17:35)
[2024-04-27 10:26] LABS: Lipase 599 U/L (23-300)
[2024-04-27 10:39] LABS: Triglycerides 736 mg/dL (<150)
[2024-04-27 11:41] LABS: Glucose Point of Care 273 mg/dl (65-105)
[2024-04-27] MEDS: HYDROmorphone HCL INJ (*CRX) 1 MG/ML SYR 0.75 MG IV PUSH (12:14)
--- NOTE | 2024-04-27 13:18 | PM.IMPN ---
Progress Note: A&P Assessment and Plan (1) Pancreatitis: Qualifiers: Chronicity: acute Pancreatitis type: unspecified pancreatitis type Acute pancreatitis complication: no infection or necrosis Qualified Code(s): K85.90 - Acute pancreatitis without necrosis or infection, unspecified Code(s): K85.90 - Acute pancreatitis without necrosis or infection, unspecified Status: Acute Assessment and Plan: - IV fluids @ 100 mL/hr - trend lipase:757, 5776, 634, 599 - lipid panel with elevated triglycerides of 1898 and A1C 11.0 - pain control with Tylenol, [place], Morphine - zofran prn for nausea - CT abd/pelvis: Pancreatitis of the body and tail of the pancreas, hepatomegaly with fat infiltration, splenomegaly, stone in the left kidney. Lobulated outline of both kidneys. Small cyst in the right kidney, small fat-containing umbilical hernia. - ETOH: none - Diet advanced to full liquids. - Pain is improved. Possible discharge tomorrow if she can tolerate low fat diet. (2) Diabetes: Code(s): E11.9 - Type 2 diabetes mellitus without complications Status: Acute Assessment and Plan: - hypoglycemia protocol - POC blood glucose ACHS - home medication: Metformin and Trulicity held - correct regimen ordered - low dose TIDWM and HS - A1C 11% on 04/25/2024 (3) Hypertension: Code(s): I10 - Essential (primary) hypertension Status: Acute Assessment and Plan: - continue home medications: Amlodipine 5 mg daily and losartan 100 mg daily - monitor Plan GI Prophylaxis: not currently indicated DVT Prophylaxis: SCDs Lines: peripheral Code Status: full code Subjective Date/time seen: 04/27/24 13:18 Interval history: Patient's pain is improving. She tolerated clear liquids well. Will advance to full and into low-fat. If she continues to do well with her diet plan to discharge tomorrow. Discussed with her about talking to her primary care provider about increasing her diabetic medications if she truly takes them as prescribed. Exam Narrative: GENERAL: Comfortable, no acute distress, central obesity HENMT: dry mucous membranes EYES: EOM intact b/l RESPIRATORY: clear to auscultation, no increased respiratory effort CARDIO: Regular rate and rhythm GI: soft, left upper quadrant tenderness (improved) , bowel sounds present SKIN/EXTREMITIES: no rashes, no edema, no redness or tenderness NEURO: PROM intact, answers questions appropriately, A&O x4 Objective Data Vital Signs Vital Signs: Vital Signs - 24 hr 04/26/24 14:30 04/26/24 22:00 04/26/24 20:00 Temperature 97.3 F L 97.3 F L Pulse Rate 110 H 113 H Respiratory Rate 18 18 Blood Pressure 130/64 147/80 H Pulse Oximetry 96 96 Oxygen Delivery Room Air 04/27/24 06:00 04/27/24 09:00 Temperature 97.1 F L Pulse Rate 102 H Respiratory Rate 16 Blood Pressure 151/92 H Pulse Oximetry 95 Oxygen Delivery Room Air Intake/Output Intake/Output: Intake & Output 04/24/24 04/25/24 04/26/24 04/27/24 23:59 23:59 23:59 23:59 Intake Total 1000 2706.7 2220.0 2450 Balance 1000 2706.7 2220.0 2450 Meds/Results Medications: Active Medications Generic Name Dose Route Start Last Admin Trade Name Freq PRN Reason Stop Dose Admin Acetaminophen 650 mg 04/24/24 18:50 04/25/24 12:58 Acetaminophen 325 Mg Tablet PO 650 mg Q4H PRN Administration Mild Pain (1-3) or Fever Hydrocodone Bitart/Acetaminophen 1 tab 04/24/24 18:50 04/26/24 21:53 Hydrocodone/Acetaminophen (*Crx) 5-325 Mg Tablet PO 1 tab Q4H PRN Administration Pain Rated 4-6 Amlodipine Besylate 5 mg 04/25/24 09:00 04/27/24 08:57 Amlodipine Besylate 5 Mg Tablet PO 5 mg DAILY GUERO Administration Dextrose 12.5 gm 04/24/24 18:53 Dextrose 50% 25 Gm/50 Ml Syringe IV PUSH PRN PRN Hypoglycemia Protocol Ergocalciferol 50,000 units 04/27/24 09:00 04/27/24 08:57 Ergoca
[2024-04-27 14:00] VITALS: BP 129/72; PULSE 106; RESP 24; TEMP 37; O2SAT 95
[2024-04-27 16:46] LABS: Glucose Point of Care 229 mg/dl (65-105)
[2024-04-27] MEDS: HYDROcodone/acetaminophen (*CRX) 5-325 MG TABLET 1 TAB PO ×2 (17:39→23:08)
[2024-04-27] MEDS: PANTOPRAZOLE 40 MG TABLET PO (20:10)
[2024-04-27 21:25] VITALS: BP 154/84; PULSE 105; RESP 18; TEMP 36.1; O2SAT 96
[2024-04-27 21:33] LABS: Glucose Point of Care 284 mg/dl (65-105)
[2024-04-28] MEDS: HYDROmorphone HCL INJ (*CRX) 1 MG/ML SYR 0.75 MG IV PUSH (01:10)
[2024-04-28 05:25] VITALS: BP 147/79; PULSE 95; RESP 16; TEMP 36.6; O2SAT 97
[2024-04-28 05:55] LABS: Hematocrit 29.2 % (37.0-47.0); Mean Corpuscular HGB Conc 30.8 g/dl (32-36); Mean Corpuscular Hemoglobin 25.1 pg (26-34); Mean Corpuscular Volume 81.6 fl (80-100); Platelet Count Result 281 k/mm3 (150-375); Red Blood Count 3.58 M/mm3 (4.2-5.4); Red Cell Distribution Width 15.9 % (11.5-14.5); White Blood Count 9.2 K/mm3 (4.5-10.0)
[2024-04-28 06:14] LABS: Anion Gap 6 mmol/L (4-12); Blood Urea Nitrogen 7 mg/dL (7-17); Calcium 8.5 mg/dL (8.4-10.2); Carbon Dioxide 23 mmol/L (22-30); Chloride 108 mmol/L (98-107); Estimated CRCL calculation 152 ml/min; Estimated Glomerular Filt Rate > 60; Glucose 239 mg/dL (65-110); Lipase 443 U/L (23-300); Potassium 3.7 mmol/L (3.4-5.0); Sodium 137 mmol/L (137-145)
[2024-04-28 08:32] LABS: Glucose Point of Care 236 mg/dl (65-105)
[2024-04-28] MEDS: LOSARTAN POTASSIUM 100 MG TABLET PO (09:05)
[2024-04-28] MEDS: FENOFIBRATE 160 MG TABLET PO (09:05)
[2024-04-28] MEDS: amLODIPine BESYLATE 5 MG TABLET PO (09:05)
[2024-04-28] MEDS: INSULIN ASPART (*BKC) 100 UNITS/ML SUB-Q ×2 (09:06→12:31)
[2024-04-28] MEDS: HYDROcodone/acetaminophen (*CRX) 5-325 MG TABLET 1 TAB PO ×2 (09:10→13:37)
[2024-04-28 12:16] LABS: Glucose Point of Care 292 mg/dl (65-105)
--- NOTE | 2024-04-28 12:49 | PM.DS ---
DS: Admitting Diagnosis Discharge Date 04/28/24 Admitting Diagnosis acute pancreatitis DS: Discharge Diagnosis Discharge Diagnosis (1) Pancreatitis: Qualifiers: Chronicity: acute Pancreatitis type: unspecified pancreatitis type Acute pancreatitis complication: no infection or necrosis Qualified Code(s): K85.90 - Acute pancreatitis without necrosis or infection, unspecified Code(s): K85.90 - Acute pancreatitis without necrosis or infection, unspecified Status: Acute (2) Diabetes: Code(s): E11.9 - Type 2 diabetes mellitus without complications Status: Acute (3) Hypertension: Code(s): I10 - Essential (primary) hypertension Status: Acute DS: Summary Hospital Course Hospital Course: 38 y/o F presents here with abdominal pain with PMH of pancreatitis, DM, and HTN. The patient presents here from home for further evaluation of epigastric pain. The pain began approximately 2 days ago. She describes the pain as an aching/fullness, radiating into her mid back, intermittent, aggravated by eating, and alleviated by water. Also experiencing nausea and vomiting. No associated fever, diarrhea, urinary symptoms, or changes in stool color. Has been taking ibuprofen for pain without relief. Denies ETOH use. Reports compliance with DM medications and HTN medications at this time. ED workup showed: WBC 13, no anemia, sodium 134, creatinine 0.6 and GFR >60, glucose 283, and lipase 757. UA equivocal for UTI. CT abd/pelvis pancreatitis, hepatomegaly, splenomegaly, stone in the left ureter, small cyst in the right kidney, and small fat containing umbilical hernia. patient was started on IV fluids. Trended lipase: 757, 5776, 634, 599. Analgesics given as needed. Patient's diet was advanced and she did well with this. Patient did have elevated A1c of 11. It was advised that she follow-up with her PCP to adjust her diabetic medication. Her labs and vital signs are stable and she is medically clear for discharge at this time. Time Spent with Patient Time attestation: Total time spent providing and/or coordinating discharge services: Exam Narrative: GENERAL: Comfortable, no acute distress, central obesity HENMT: dry mucous membranes EYES: EOM intact b/l RESPIRATORY: clear to auscultation, no increased respiratory effort CARDIO: Regular rate and rhythm GI: soft, bowel sounds present SKIN/EXTREMITIES: no rashes, no edema, no redness or tenderness NEURO: PROM intact, answers questions appropriately, A&O x4 DS: Data Data Completed and Pending Labs on day of discharge: Labs from last 24 hours 04/28/24 04/28/24 04/28/24 11:51 08:10 05:06 WBC 9.2 RBC 3.58 L Hgb 9.0 L Hct 29.2 L MCV 81.6 MCH 25.1 L MCHC 30.8 L RDW 15.9 H Plt Count 281 MPV 10.0 Sodium 137 Potassium 3.7 Chloride 108 H Carbon Dioxide 23 Anion Gap 6 BUN 7 Creatinine 0.50 L Estim Creat Clear Calc 152 Estimated GFR > 60 Glucose 239 H POC Capillary Glucose 292 H 236 H Calcium 8.5 Lipase 443 H 04/27/24 04/27/24 21:30 16:43 WBC RBC Hgb Hct MCV MCH MCHC RDW Plt Count MPV Sodium Potassium Chloride Carbon Dioxide Anion Gap BUN Creatinine Estim Creat Clear Calc Estimated GFR Glucose POC Capillary Glucose 284 H 229 H Calcium Lipase Discharge Plan Discharge Discharging Clinician: Heather Portillo Patient Disposition: Home, Self-Care Activity: no preference Diet: regular Discharge Instructions: DISCHARGE INSTRUCTIONS: Call your doctor if: -You have severe pain in your abdomen and you are vomiting. -You have a fever. -You continue to lose weight without trying. -Your skin or the whites of your eyes turn yellow. -You have questions or concerns about your condition or care. Self-care: -Rest when you feel it is needed. Slowly start to do more each day. -Do not drink
== END 2024-04-28 13:42 | disposition home or self-care (01) | DRG 440 ==
LOC: ANHED 14:28 → ANH3MED 18:28
PROVIDERS: Student in an Organized Health Care Education/Training Program; Admitting Provider Internal Medicine; Emergency Provider Emergency Medicine; Visit Provider Internal Medicine Critical Care Medicine
DX: K85.90 Acute pancreatitis without necrosis or infection, unspecified (principal); E11.9 Type 2 diabetes mellitus without complications; I10 Essential (primary) hypertension; Z79.85 Long-term (current) use of injectable non-insulin antidiabetic drugs; Z79.84 Long term (current) use of oral hypoglycemic drugs
CPT/HCPCS: 36415; 74177; 80048; 80053; 80061; 81001; 81025; 82948; 83036; 83690; 84478; 85025; 85027; 87086; 87088; 93005; 96361; 96374; 96375; 96376; 99285; A9270; G0378; J0696; J1170; J1815; J1885; J2270; J2405; J7030; Q9967